=== PATIENT | male | born 1960 ===

== ENCOUNTER → 2017-01-05 | Outpatient (CLI) | payer OTHER ==
[2017-01-05 14:41] LABS: ALT/SGPT 28 U/L (12-78); AST/SGOT 21 U/L (15-37); BLOOD UREA NITROGEN 20 mg/dl (7-18); BUN/CREATININE RATIO 25.1 (10-20); CALCIUM 8.4 mg/dl (8.5-10.1); CARBON DIOXIDE 26 mmol/L (21-32); CHLORIDE 109 mmol/L (98-107); CHOLESTEROL 179 mg/dl (0-200); CREATININE 0.79 mg/dl (0.60-1.40); GLUCOSE 80 mg/dl (70-99); POTASSIUM 3.5 mmol/L (3.5-5.1); SODIUM 143 mmol/L (136-145)
[2017-01-05 14:45] LABS: CHOLESTEROL/HDL RATIO 2.6; HDL CHOLESTEROL 69 mg/dl; LDL CHOLESTEROL CALCULATED 101 mg/dl; PROSTATE SPECIFIC ANTIGEN 0.959 ng/ml (0.000-4.000); TRIGLYCERIDES 47 mg/dl (0-150); VERY LOW DENSITY LIPOPROT CALC 9 mg/dl
== END | disposition home or self-care (01) ==
LOC: C.LABMFLN 10:39
PROVIDERS: ATTEND Family Medicine
DX: I10 Essential (primary) hypertension (principal); Z13.220 Encounter for screening for lipoid disorders; Z12.5 Encounter for screening for malignant neoplasm of prostate; M15.9 Polyosteoarthritis, unspecified